=== PATIENT | male | born 1985 | race Caucasian/White ===

== ENCOUNTER 2017-03-31 18:07 | Emergency (ER) | payer SELFPAY ==
[2017-03-31 18:15] VITALS: BP 143/73
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
== END 2017-03-31 19:50 | disposition home or self-care (01) ==
LOC: ER 18:07
DX: M25.512 Pain in left shoulder (principal); S49.92XA Unspecified injury of left shoulder and upper arm, initial encounter; W17.89XA Other fall from one level to another, initial encounter; Y93.55 Activity, bike riding; Z87.81 Personal history of (healed) traumatic fracture; Z88.0 Allergy status to penicillin; F17.210 Nicotine dependence, cigarettes, uncomplicated; Z71.6 Tobacco abuse counseling
CPT/HCPCS: 99283